=== PATIENT | female | born 1965 | race Caucasian/White ===

== ENCOUNTER 2024-07-28 15:16 | Observation (INO) ==
[2024-07-28 15:43] LABS: Basophils # (auto) 0.07 K/uL (0.00-0.20); Basophils % (auto) 0.7 %; Eosinophils # (auto) 0.19 K/uL (0.00-0.50); Eosinophils % (auto) 1.9 %; Hematocrit (blood only) 46.1 % (37.0-47.0); Hemoglobin 14.9 g/dl (12.0-16.0); Immature Granulocytes # (auto) 0.05 K/uL (0.01-0.20); Immature Granulocytes % (auto) 0.5 %; Lymphocytes # (auto) 1.99 K/uL (1.20-3.40); Lymphocytes % (auto) 19.7 %; Mean Corpuscular Hemoglobin 27.3 pg (25.0-34.0); Mean Corpuscular Hgb Conc 32.3 g/dL (32.0-36.0); Mean Corpuscular Volume 84.6 fL (80.0-100.0); Mean Platelet Volume 10.1 fL (9.4-12.4); Monocytes # (auto) 0.76 K/uL (0.11-0.59); Monocytes % (auto) 7.5 %; Neutrophils # (auto) 7.06 K/uL (1.40-6.50); Neutrophils % (auto) 69.7 %; Nucleated RBC # (auto) 0.02 K/uL (0.00-0.12); Nucleated RBC % (auto) 0.2 %; Platelet Count 361 K/uL (130-400); RDW Coefficient of Variation 13.4 % (11.5-14.5); RDW Standard Deviation 41.6 fL (36.4-46.3); Red Blood Count 5.45 M/uL (4.20-5.40); White Blood Count 10.12 K/ul (4.8-10.8)
--- NOTE | 2024-07-28 16:02 | Electrocardiogram Report ---
Test Reason : Blood Pressure : */* mmHG Vent. Rate : 85 BPM Atrial Rate : 85 BPM P-R Int : 160 ms QRS Dur : 86 ms QT Int : 364 ms P-R-T Axes : 41 -10 51 degrees QTcB Int : 433 ms Normal sinus rhythm Normal ECG No previous ECGs available Confirmed by Srini Ozuna ([id number]) on 07/28/2024 4:01:41 PM Referred By: Confirmed By: Srini Ozuna
[2024-07-28 16:04] LABS: Partial Thromboplastin Time 28 Seconds (21-31); Prothrombin Time 10.5 Seconds (9.0-12.0)
[2024-07-28 16:16] LABS: BUN Creatinine Ratio 19.4 (10-20); Calcium 9.2 mg/dl (8.6-10.3); Creatinine Clr Calc Pharmacy 85.8 ml/min; Potassium 3.8 mmol/L (3.5-5.1)
--- NOTE | 2024-07-28 16:22 | XRay Report ---
Clinical History: Chest pain Technique: A frontal view of the chest was obtained Findings: There are no confluent pulmonary infiltrates. The heart size is within normal limits. No pleural effusion or pneumothorax is seen. There is no definite pulmonary nodule. No fracture is noted. No foreign body is seen Impression: No active disease Electronically signed by Felton Rodriguez 07-28-2024 4:21 PM
[2024-07-28 16:23] LABS: Troponin I High Sensitivity 2.6 pg/ml (0-14)
[2024-07-28 16:24] LABS: D Dimer < 190 ug/L FEU (0-500)
[2024-07-28] MEDS: ASPIRIN 81 MG CHEW PO STA (16:52)
--- NOTE | 2024-07-28 16:58 | History & Physical Report ---
Date of Service July 28, 2024 Assessment & Plan (1) Chest pain: (2) Nausea and vomiting: (3) Breast cancer: Plan Paulette is a pleasant 59-year-old female with PMH of breast cancer. She presented on 07/28 for chest pain that developed around 1440 while at work. Patient was standing behind a register at work, when she suddenly developed the chest pain. It was located midsternally, and when she sat down, she could feel it radiate to her left shoulder and down her left arm. The pain lasted for approximately 5 minutes, then went away. She is chest pain-free at time of admission. #Chest pain Aspirin 324 mg p.o. given on arrival No prior cardiac history Troponin WNL arrival, repeat pending Given CP < 20min would not expect patient's troponin to be bumped EKG NSR on arrival, no prior for comparison Continuous telemetry monitoring for now Case discussed with cardiology Will plan for stress test on the morning of 07/29 #Recent GI illness Patient reports she was throwing up the morning of 07/28 Suspect that the etiology of her chest pain will likely be GI/MSK; however, given radiation to the left shoulder and SOB during the event, reasonable to bring her in for stress test Protonix 40 mg p.o. x 1 Famotidine 20 mg p.o. x 1 IV antiemetics as needed Encourage p.o. fluid intake in the setting of national IVF shortage #Breast cancer Continue tamoxifen Disposition: Obs - Admit to [facility] tele Full code Heart healthy diet VTE PPx: SCDs History of Present Illness Chief Complaint: Chest pain Primary Care Provider: Ivette Caldwell is a pleasant 59-year-old female with PMH of breast cancer. She presented on 07/28 for chest pain that developed around 1440 while at work. Patient was standing behind a register at work, when she suddenly developed the chest pain. It was located midsternally, and she went to sit down, and she could feel it radiate to her left shoulder and down her left arm. The pain lasted for approximately 5 minutes, then went away. She characterized it as a "pushing/heavy" pain. She is chest pain-free at time of admission, but has some mild residual soreness in her left shoulder. She has no prior history of chest pain over the past several weeks; does not normally get chest pain when she exerts herself. Patient did not take any medicine prior to coming into the hospital for the pain. She denies any prior cardiac history (no history of [place], CHF, or CVA). She has been told in the past that she is prediabetic. Additionally, the patient recently had a stomach bug, and has been sick for the past few days; she was vomiting this morning. Patient did not take her regular morning medicine today. Her helps to manage her medicine for her. Only recent change in medication was that she was switched from folic acid daily to every other day. Additionally, she reports she has a constant pain beneath her right breast, but this is not new for her. No recent injuries to the chest wall, or muscle strain to her knowledge. No history of GERD to her knowledge. No recent change in diet. Patient denies smoking or tobacco use. She does endorse 1 alcoholic drink last night. Patient is hypertensive at 187/103 at time of admission; vitals otherwise stable. ED course: Aspirin 324 mg p.o. ROS: Patient endorses chest pain with radiation to the left arm/shoulder, SOB (resolved; patient felt winded during the event, but reports she could still catch her breath), lightheadedness (resolved), chronic pain under the right breast, dry cough (which patient attributes to her asthma), nausea, vomiting the morning of 07/28, and recent diarrhea (resolved last week). Patient denies fever, dizziness, rashes, tick bites, pleuritic CP, chest palpitations, visible blood in urine, melena, blood in stool, or numbness/tingling going down the arms or legs. Allergies Allergy/AdvReac Type Severity Reaction Status Date / Time amish Allergy Mild breaks out Unverified 07/28/24 16:56 Penicillins Allergy Mild breaks out Unverified 07/28/24 16:56 Home Medications Medication Instructions Recorded Confirmed Type cyanocobalamin (vitamin B-12) 1,000 mcg PO DAILY 07/28/24 07/28/24 History 1,000 mcg tablet cyclobenzaprine 10 mg tablet 10 mg PO DAILY 07/28/24 07/28/24 History folic acid 1 mg tablet 1 mg PO .Q OTHER DAY 07/28/24 07/28/24 History hydroxyzine HCl 25 mg tablet 25 mg PO DAILY 07/28/24 07/28/24 History ibuprofen 800 mg tablet 800 mg PO TID PRN Pain 07/28/24 07/28/24 History meclizine 25 mg tablet 25 mg PO DAILY PRN Dizziness 07/28/24 07/28/24 History paroxetine HCl 10 mg tablet 10 mg PO DAILY 07/28/24 07/28/24 History tamoxifen 20 mg tablet 20 mg PO DAILY 07/28/24 07/28/24 History Past Med/Surg History Problem List (Updated 07/28/24 @ 17:47 by Cristofer Patel PA-C) Nausea and vomiting Breast cancer Chest pain Social History Smoking Status: Never smoker Preferred Language: [place] Feels Safe at Home: Yes Review of Systems Review of Systems: See HPI above Physical Exam Physical Exam: General: no acute distress; pleasant affect; anxious; at bedside; non- toxic appearing; cooperative; SpO2 90% on RA HEENT: normocephalic, atraumatic; no scleral icterus; PERRLA; vision and hearing grossly intact Neck: supple; no lymphadenopathy; trachea midline; patient demonstrates ability to shrug shoulders against resistance without re-producing pain Skin: warm, dry without signs of tenting; no cyanosis; no rashes, bruising, lesions, or erythema noted CV: chest wall NTP; pain is nonreproducible on exam; RRR; S1/S2 normal; no murmurs/rubs/gallops; pulses intact and symmetric at radial, DP, and PT Lungs: no acute respiratory distress; symmetrical chest wall expansion; clear breath sounds across all lung celeste w/o adventitious sounds; no wheezing ABD: Soft, NTP; BS present; no rebound/guarding; no distention MSK: no tics or fasciculations; no edema noted in the LEs b/l, nonerythematous Neuro: A&Ox3; normal mood and affect; fluent speech; no focal deficits; sensation grossly intact in the LEs b/l Results & Data Results & Data Vital Signs (Past 12 Hours) Vital Signs Temp Pulse Pulse Resp BP BP Pulse Ox 07/28/24 15:29 07/28/24 15:29 78 18 187/103 H 98 07/28/24 15:29 07/28/24 15:22 36.5 C 80 20 173/109 H 100 O2 Del Method 07/28/24 15:29 Room Air 07/28/24 15:29 07/28/24 15:29 Room Air 07/28/24 15:22 Room Air Laboratory Results Abnormal lab results 07/28/24 Range/Units 15:34 RBC 5.45 H (4.20-5.40) M/uL Neut # (Auto) 7.06 H (1.40-6.50) K/uL [place] # (Auto) 0.76 H (0.11-0.59) K/uL Chloride 108 H (98-107) mmol/L Lipase 7 L (11-82) U/L Diagnostic Findings Chest X-Ray 07/28/24 15:27 Clinical History: Chest pain Technique: A frontal view of the chest was obtained Findings: There are no confluent pulmonary infiltrates. The heart size is within normal limits. No pleural effusion or pneumothorax is seen. There is no definite pulmonary nodule. No fracture is noted. No foreign body is seen Impression: No active disease Electronically signed by Felton Rodriguez 07-28-2024 4:21 PM ECG Additional Comments: ECG revealed NSR 85 bpm; QTc 433; no prior EKGs for comparison Code Status & VTE Plan Code Status Full code VTE Prophylaxis Plan VTE Prophylaxis will be ordered: Yes Supervising Physician Co-Signing Physician Notes Patient seen and examined, chart reviewed, case discussed with Cristofer Patel PA-C and I agree with the assessment and plan as above except as otherwise noted Labs and images reviewed 59-year-old female with recent GI illness with some vomiting who was in usual state of health while at work when she suddenly developed substernal chest pressure and pain which radiated into her left shoulder. Lasted about 5 minutes before resolving. Did feel short of breath and winded during the episode. No diaphoresis. Her troponin was negative in the ER. She is recommended for further cardiac evaluation. EKGs without acute ischemic changes Pain is not reproducible on palpation, does not have epigastric tenderness to palpation Given nonreproducible chest pain with radiation to the left shoulder which lasted for short enough time that it may not have raise a troponin reasonable to pursue stress test. Suspect more likely that this is esophageal/GI given her recent GI illness and will continue treatment with PPI/H2; but could also have increased cardiac stress due to dehydration and this illness. Given hypertension, age, at least moderately suspicious story reasonable to further st ratify with stress test. Additionally patient was very concerned about a tender area underlying her right breast and does have a history of breast cancer. Area is without mass or overlying erythema/warmth/tenderness. No fluctuance. No evidence of cellulitis. Did review MRI from previous January. Pain was present at that time and was marked for that imaging which did not show any evidence of malignancy, infection or other abnormality.? Whether this is due to scar tissue. Recommend keeping already scheduled routine surveillance imaging, no acute change in management at this time. Symptomatically can do Tylenol and could trial topical lidocaine. Would avoid NSAIDs due to history of GI bleed and current nausea/vomiting? Gastritis. If persistent could try local injection as outpatient. Agree with assessment and management of above PG Care Time/CCT Total # of Minutes Spent Total Time Spent with Patient: Total time spent is greater than 50% in coordination of care (as documented) at patient's floor/unit and/or counseling patient: C[place] [address] INT INP/OBS CARE 2/55MIN Patient Type Established Medical Decision Making Moderate Complexity Diagnoses Chest pain R07.9 Nausea and vomiting R11.2 Breast cancer C50.919
--- NOTE | 2024-07-28 18:29 | Emergency Department Note ---
History of Present Illness General Chief Complaint: Chest Pain Stated Complaint: CHEST PAIN, PAIN DOWN L ARM, NAUSEA, VOMITING Time Seen by Provider: 07/28/24 15:27 History of Present Illness Provider Complaint: chest pain Time: 14:40 Duration: now resolved Onset: during rest Pain Location: left chest Pain Radiation: LUE Severity: moderate Maximum Pain Intensity: 7 Current Pain Intensity: 0 Quality: + heaviness Relieved By: + nothing Exacerbated By: + nothing Context: no recent illness, no recent surgery, no recent immobilization, no recent travel, no trauma/injury, no new medications or no history of DVT/PE Associated symptoms: + nausea, + dyspnea and + palpitations; no vomiting, no syncope, no fever or no cough Treatments prior to arrival: none Home Medications Medication Instructions Recorded Confirmed Type cyanocobalamin (vitamin B-12) 1,000 mcg PO DAILY 07/28/24 07/28/24 History 1,000 mcg tablet cyclobenzaprine 10 mg tablet 10 mg PO DAILY 07/28/24 07/28/24 History folic acid 1 mg tablet 1 mg PO .Q OTHER DAY 07/28/24 07/28/24 History hydroxyzine HCl 25 mg tablet 25 mg PO DAILY 07/28/24 07/28/24 History ibuprofen 800 mg tablet 800 mg PO TID PRN Pain 07/28/24 07/28/24 History meclizine 25 mg tablet 25 mg PO DAILY PRN Dizziness 07/28/24 07/28/24 History paroxetine HCl 10 mg tablet 10 mg PO DAILY 07/28/24 07/28/24 History tamoxifen 20 mg tablet 20 mg PO DAILY 07/28/24 07/28/24 History Allergies Allergy/AdvReac Type Severity Reaction Status Date / Time amish Allergy Mild breaks out Unverified 07/28/24 16:56 Penicillins Allergy Mild breaks out Unverified 07/28/24 16:56 Past Med/Surg History Problem List (Updated 07/28/24 @ 18:33 by Bob Robin MD) Nausea and vomiting Chest pain (Acute) Medical History No pertinent family history Breast cancer Surgical History No pertinent past surgical history Social History Smoking Status: Never smoker Preferred Language: Welsh Feels Safe at Home: Yes Physical Exam Vital Signs Vital Signs - 24 hr 07/28/24 15:22 07/28/24 15:29 07/28/24 15:29 Temperature 36.5 C Temperature Source Temporal Artery Scan Pulse Rate 80 Pulse Rate [Apical] 78 Pulse Rhythm [Apical] Regular Respiratory Rate 20 18 Respiratory Effort / Characteristics Non-Labored Non-Labored Respiratory Depth Normal Normal Blood Pressure 173/109 H Blood Pressure [Left Arm] 187/103 H Blood Pressure Mean 130 Blood Pressure Mean [Left Arm] 131 Pulse Oximetry 100 98 Oxygen Delivery Method Room Air Room Air Sepsis Recent Fever Within 48 Hours No Sepsis New/Unexplained Change in Mental Status No Sepsis Action Taken by Nursing No Action Required 07/28/24 15:29 07/28/24 17:22 Temperature Temperature Source Pulse Rate 81 Pulse Rate [Apical] Pulse Rhythm [Apical] Respiratory Rate Respiratory Effort / Characteristics Respiratory Depth Blood Pressure Blood Pressure [Left Arm] Blood Pressure Mean Blood Pressure Mean [Left Arm] Pulse Oximetry Oxygen Delivery Method Room Air Sepsis Recent Fever Within 48 Hours Sepsis New/Unexplained Change in Mental Status Sepsis Action Taken by Nursing Physical Exam GENERAL: oriented to person, place, and time. appears well-developed and well- nourished. HENT: Exam performed. - Head: Normocephalic and atraumatic. EYES: Conjunctivae and EOM are normal. Right eye exhibits no discharge. Left eye exhibits no discharge. No scleral icterus. NECK: Normal range of motion. Neck supple. No JVD present. CV: Normal rate, regular rhythm, normal heart sounds and intact distal pulses. There is no peripheral edema. Palpable radial pulses bue. PULM/CHEST: Effort normal and breath sounds normal. No respiratory distress. No stridor. no wheezes. no rales. ABD: The abdomen is soft. There is no tenderness. NEURO: Motor and sensation grossly intact. SKIN: Skin is warm and dry. He is not diaphoretic. PSYCH: normal mood and affect. Behavior is normal. Judgment and thought content normal. Course Course 152: The patient was evaluated in room C1. A complete history and physical exam was performed Cardiac monitoring: An order was placed for continuous cardiac monitoring. The monitor shows a rate of 80 with sinus rhythm interpreted by me 1630: Vital signs stable. Labs and imaging unremarkable. [facility] out ACS. Administered Medications Discontinued Medications Aspirin (Aspirin 81 Mg Chew) 324 mg PO NOW STA Stop: 07/28/24 16:34 Last Admin: 07/28/24 16:52 Dose: 324 mg Documented By: SEBASTIEN Medical Decision Making Laboratory Data Attestation: I reviewed the patient's lab results. 07/28/24 15:34 07/28/24 15:34 Labs: Lab Results 07/28/24 07/28/24 Range/Units 15:34 17:15 WBC 10.12 (4.8-10.8) K/ul RBC 5.45 H (4.20-5.40) M/uL Hgb 14.9 (12.0-16.0) g/dl Hct 46.1 (37.0-47.0) % MCV 84.6 (80.0-100.0) fL MCH 27.3 (25.0-34.0) pg MCHC 32.3 (32.0-36.0) g/dL RDW Std Deviation 41.6 (36.4-46.3) fL RDW Coeff of Suzy 13.4 (11.5-14.5) % Plt Count 361 (130-400) K/uL MPV 10.1 (9.4-12.4) fL Immature Gran % (Auto) 0.5 % Neut % (Auto) 69.7 % Lymph % (Auto) 19.7 % [place] % (Auto) 7.5 % Eos % (Auto) 1.9 % Baso % (Auto) 0.7 % Neut # (Auto) 7.06 H (1.40-6.50) K/uL Lymph # (Auto) 1.99 (1.20-3.40) K/uL [place] # (Auto) 0.76 H (0.11-0.59) K/uL Eos # (Auto) 0.19 (0.00-0.50) K/uL Baso # (Auto) 0.07 (0.00-0.20) K/uL Immature Gran # (Auto) 0.05 (0.01-0.20) K/uL Absolute Nucleated RBC 0.02 (0.00-0.12) K/uL Nucleated RBC % (auto) 0.2 % PT 10.5 (9.0-12.0) Seconds INR 1.0 (0.9-1.1) APTT 28 (21-31) Seconds PTT Ratio 1.0 D-Dimer < 190 (0-500) ug/L FEU Sodium 142 (136-145) mmol/L Potassium 3.8 (3.5-5.1) mmol/L Chloride 108 H (98-107) mmol/L Carbon Dioxide 26 (21-32) mmol/L Anion Gap 8 (3-11) BUN 14 (6-23) mg/dl Creatinine 0.72 (0.6-1.2) mg/dl Est Cr Clr Drug Dosing 85.8 ml/min eGFR 97.46 BUN/Creatinine Ratio 19.4 (10-20) Glucose 89 (70-99(Fasting)) mg/dl Calcium 9.2 (8.6-10.3) mg/dl Troponin I High Sens 2.6 2.8 (0-14) pg/ml Lipase 7 L (11-82) U/L ECG Data Attestation: I personally reviewed and interpreted this ECG as follows: Indication: chest pain Rate (beats per minute): 85 Rhythm: normal sinus Findings: no ST depression, no ST elevation or no prolonged QT [facility] Narrative 1527: The patient was evaluated in room C1. A complete history and physical exam was performed Cardiac monitoring: An order was placed for continuous cardiac monitoring. The monitor shows a rate of 80 with sinus rhythm interpreted by me 1630: Vital signs stable. Labs and imaging unremarkable. Patient be admitted to the [facility] hospitalist team for chest pain rule out ACS. Impression & Plan Chest pain Discharge Plan Visit Data Chief Complaint: Chest Pain Stated Complaint: CHEST PAIN, PAIN DOWN L ARM, NAUSEA, VOMITING ED Provider: Bob Robin Discharge Problem: Chest pain Patient Disposition: Being Evaluated by Hospitalist Forms Stand Alone Forms: My [facility] Prescriptions Prescriptions: No Action cyclobenzaprine 10 mg Tablet 10 mg PO DAILY paroxetine HCl 10 mg tablet 10 mg PO DAILY ibuprofen 800 mg tablet 800 mg PO TID PRN (Reason: Pain) cyanocobalamin (vitamin B-12) 1,000 mcg Tablet 1,000 mcg PO DAILY meclizine 25 mg Tablet 25 mg PO DAILY PRN (Reason: Dizziness) folic acid 1 mg tablet 1 mg PO .Q OTHER DAY hydroxyzine HCl 25 mg tablet 25 mg PO DAILY tamoxifen 20 mg tablet 20 mg PO DAILY Referrals Referrals: Ivette Harris D.O. [Primary Care Provider] - Discharge Problem: Chest pain Qualifiers: Chest pain type: unspecified Qualified Code(s): R07.9 - Chest pain, unspecified
[2024-07-28] MEDS: PANTOprazole 40 MG TAB PO STA (18:34)
[2024-07-28] MEDS: FAMOTIDINE 20 MG TAB PO ONE (18:34)
[2024-07-28 23:06] VITALS: RESP 18
[2024-07-29] MEDS: ACETAMINOPHEN 325 MG TAB PO PRN (02:39)
[2024-07-29 11:46] VITALS: BP 150/86; TEMP 98.1; O2SAT 96
[2024-07-29] MEDS: KETOROLAC TROMETHAMINE 15 MG/ML VIAL IV ONE (12:02)
[2024-07-29] MEDS: ONDANSETRON INJ 2 MG/ML 2 ML VIAL IV PRN (12:02)
[2024-07-29] MEDS: hydrOXYzine HCl 25 MG TAB PO SCH (12:03)
[2024-07-29] MEDS: CYCLOBENZAPRINE HCL 10 MG TAB PO SCH (12:03)
[2024-07-29] MEDS: PARoxetine HCL 10 MG TAB PO SCH (12:03)
[2024-07-29] MEDS: TAMOXIFEN CITRATE 10 MG TABLET PO SCH (12:05)
--- NOTE | 2024-07-29 12:14 | Discharge Summary ---
Date of Service July 29, 2024 Admission HPI Per Admitting Provider Paulette is a pleasant 59-year-old female with PMH of breast cancer. She presented on 07/28 for chest pain that developed around 1440 while at work. Patient was standing behind a register at work, when she suddenly developed the chest pain. It was located midsternally, and she went to sit down, and she could feel it radiate to her left shoulder and down her left arm. The pain lasted for approximately 5 minutes, then went away. She characterized it as a "pushing/heavy" pain. She is chest pain-free at time of admission, but has some mild residual soreness in her left shoulder. She has no prior history of chest pain over the past several weeks; does not normally get chest pain when she exerts herself. Patient did not take any medicine prior to coming into the hospital for the pain. She denies any prior cardiac history (no history of [place], CHF, or CVA). She has been told in the past that she is prediabetic. Additionally, the patient recently had a stomach bug, and has been sick for the past few days; she was vomiting this morning. Patient did not take her regular morning medicine today. Her helps to manage her medicine for her. Only recent change in medication was that she was switched from folic acid daily to every other day. Additionally, she reports she has a constant pain beneath her right breast, but this is not new for her. No recent injuries to the chest wall, or muscle strain to her knowledge. No history of GERD to her knowledge. No recent change in diet. Patient denies smoking or tobacco use. She does endorse 1 alcoholic drink last night. Patient is hypertensive at 187/103 at time of admission; vitals otherwise stable. ED course: Aspirin 324 mg p.o. ROS: Patient endorses chest pain with radiation to the left arm/shoulder, SOB (resolved; patient felt winded during the event, but reports she could still catch her breath), lightheadedness (resolved), chronic pain under the right breast, dry cough (which patient attributes to her asthma), nausea, vomiting the morning of 07/28, and recent diarrhea (resolved last week). Patient denies fever, dizziness, rashes, tick bites, pleuritic CP, chest palpitations, visible blood in urine, melena, blood in stool, or numbness/tingling going down the arms or legs. Admission Exam (Per Admitting) Constitutional The patient is awake, alert and oriented 3, well developed and well nourished, normocephalic and atraumatic, lying in bed and in no acute distress. HEENT--PERRL, EOMI, mucous membranes and oropharynx mildly dry Neck--supple. No JVD. No bruits. Thyroid normal, trachea midline, no adenopathy. Heart--normal S1 and S2. No murmurs, rubs or gallops. Lungs--clear bilaterally, no respiratory distress, no accessory muscle use. Abdomen--normal bowel sounds and soft. Extremities--no cyanosis or clubbing. No edema. Dermatologic--normal skin turgor, normal color, no abnormal lymph nodes, no rash. Neurologic--cranial nerves II through XII grossly intact. Rheumatologic--normal range of motion. Psychiatric--normal affect. Discharge Data Consultations 07/28/24 16:29 ED Decision to Admit Stat Hospital Course (1) Chest pain: (2) Nausea and vomiting: (3) Breast cancer: August Caldwell is a pleasant 59-year-old female with PMH of breast cancer. She presented on 07/28 for chest pain that developed around 1440 while at work. Patient was standing behind a register at work, when she suddenly developed the chest pain. It was located midsternally, and when she sat down, she could feel it radiate to her left shoulder and down her left arm. The pain lasted for approximately 5 minutes, then went away. She is chest pain-free at time of admission. #Chest pain Aspirin 324 mg p.o. given on arrival No prior cardiac history Troponin WNL arrival, repeat pending Stress test was negative for ischemia #Recent GI illness Patient reports she was throwing up the morning of 07/28 Suspect that the etiology of her chest pain will likely be GI/MSK; however, given radiation to the left shoulder and SOB during the event, reasonable to bring her in for stress test Protonix 40 mg p.o. x 1 Famotidine 20 mg p.o. x 1 IV antiemetics as needed Encourage p.o. fluid intake in the setting of national IVF shortage #Breast cancer Continue tamoxifen HTN BP has been elevated here in the hopsital Not on any meds at home Urged to follow up with PCP Start low dose Amlodpine 5mg daily Disposition: Obs - Admit to MedSurg tele Full code Heart healthy diet VTE PPx: SCDs Coding Level of Care Code 60393 INP/OBS DISCH >30 MIN Diagnoses Chest pain R07.9 Chest pain type: unspecified Nausea and vomiting R11.2 Breast cancer C50.919 Time Spent (min) 35
[2024-07-29 12:46] VITALS: PULSE 88
--- NOTE | 2024-07-29 13:56 | XCELERA ---
[id number]
== END 2024-07-29 13:30 | disposition home or self-care (01) ==
LOC: ED 15:16 → 2N 15:16 → SUATTDRO 17:27 → 2N 19:56